=== PATIENT | female | born 2000 | race Caucasian/White ===

== ENCOUNTER 2021-12-21 15:31 | Observation (INO) ==
[2021-12-21] MEDS ORDERED: 0.9 % Sodium Chloride 1,000 ML IVC ONE (15:55)
[2021-12-21] MEDS ORDERED: *HR* FentaNYL (PF) 100 MCG/2 ML VIAL IVP ONE (16:08)
[2021-12-21] MEDS ORDERED: Ondansetron 4 MG/2 ML VIAL IVP ONE (16:08)
[2021-12-21] MEDS ORDERED: Iopamidol - 370 500 ML MLS IVP ONE (16:08)
[2021-12-21 16:32] LABS: Hematocrit 24.9 % (35.3-44.9); Hemoglobin 7.3 g/dL (11.5-15.4); Mean Corpuscular HGB Conc 29.3 g/dL (31.6-35.5); Mean Corpuscular Hemoglobin 22.8 pg (28.0-33.3); Mean Corpuscular Volume 77.8 fL (83.0-100.0); Mean Platelet Volume 10.9 fL (9.4-12.4); Platelet Count 362 K/mcL (140-400); Red Cell Distribution Width 15.3 % (11.5-14.5); Segmented Neutrophils % 76.5 %
[2021-12-21 16:33] LABS: Bacteria,Urine Few per hpf (None-Few); Basophils # 0.1 K/mcL (0.0-0.2); Basophils % 0.4 %; Bilirubin,Urine Negative (Negative); Blood,Urine Large (Negative); Clarity,Urine Clear (Clear); Color,Urine Colorless (Yellow); Eosinophils # 0.2 K/mcL (0.0-0.6); Eosinophils % 1.3 %; Glucose,Urine (UA) Normal (Normal); Immature Granulocytes % 0.8 % (0-4); Ketones,Urine Negative (Negative); Leukocyte Esterase,Urine Small (Negative); Lymphocytes # 2.4 K/mcL (0.6-4.6); Monocytes # 1.2 K/mcL (0.0-1.3); Mucus,Urine Few per lpf (None-Few); Nitrite,Urine Negative (Negative); Protein,Urine Trace mg/dL (Neg-Trace); RBC,Urine 15-30 per hpf (0-3); Squamous Epithelial Cell,Urine Moderate per hpf (None-Few); Urobilinogen,Urine Normal (Normal)
[2021-12-21 16:52] LABS: Alanine Aminotransferase 42 Units/L (7-52); Albumin 3.6 g/dL (3.5-5.7); Albumin/Globulin Ratio 1.1 (1.1-2.2); Alkaline Phosphatase 57 Units/L (34-104); Amylase 33 Units/L (29-103); Aspartate Amino Transferase 14 Units/L (13-39); BUN/Creatinine Ratio 17 (6-26); Bilirubin,Total 0.8 mg/dL (0.3-1.0); Blood Urea Nitrogen 10 mg/dL (6-20); Calcium 8.8 mg/dL (8.6-10.3); Carbon Dioxide 22 mEq/L (23-29); Chloride 103 mEq/L (98-107); Globulin 3.4 g/dL (2.4-3.5); Glucose 96 mg/dL (70-105); Lipase 12 Units/L (11-82); Osmolality,Calculated 279 (280-300); Potassium 3.3 mEq/L (3.5-5.1); Sodium 135 mEq/L (136-145)
[2021-12-21] MEDS ORDERED: *HR* Propofol 200 MG/20 ML VIAL IVP ONE ×2 (18:09→21:07)
[2021-12-21] MEDS ORDERED: Lidocaine HCL 4 ML Topical Solution (Laryng-O-Jet Kit Sterile Pak) TP ONE ×2 (18:10)
[2021-12-21] MEDS ORDERED: Lidocaine -MPF 2% 2 ML VIAL ONE (18:10)
[2021-12-21] MEDS ORDERED: *HR* Succinylcholine 200 MG/10 ML VIAL IVP ONE (18:10)
[2021-12-21] MEDS ORDERED: *HR* Rocuronium Bromide 50 MG/5 ML VIAL ONE (18:10)
[2021-12-21] MEDS ORDERED: *HR* HYDROmorphone PF 0.5 MG/0.5 ML SYRINGE IVP PRN (18:11)
[2021-12-21] MEDS ORDERED: Ondansetron 4 MG/2 ML VIAL IVP PRN ×2 (18:11→22:11)
[2021-12-21] MEDS ORDERED: *HR* Midazolam HCl 2 MG/2 ML VIAL ONE (18:13)
[2021-12-21] MEDS ORDERED: *HR* FentaNYL (PF) 100 MCG/2 ML VIAL ONE (18:13)
[2021-12-21] MEDS ORDERED: CeFAZolin Syr 2,000MG/20 ML 2,000 MG/20 ML SYRINGE IVPB ONE (18:15)
[2021-12-21] MEDS ORDERED: Bupivacaine/EPI 1:200k 0.25% 50 ML VIAL ONE (18:35)
[2021-12-21] MEDS ORDERED: Albumin Human 5% 12.5 GM/250 ML IV.SOLN ONE (19:31)
[2021-12-21] MEDS ORDERED: Sugammadex Sodium 200 MG/2 ML VIAL IV ONE (20:40)
[2021-12-21] MEDS ORDERED: Acetaminophen IV 1,000 MG/100 ML BAG IVPB ONE (20:41)
[2021-12-21] MEDS ORDERED: *HR* HYDROMORPHONE 2 MG/ML VIAL ONE ×2 (20:53→21:07)
[2021-12-21] MEDS ORDERED: Ketorolac 30 MG/ML VIAL ONE (20:54)
[2021-12-21] MEDS ORDERED: *HR* HYDROcodone/Acet 10/325 mg TABLET PO PRN (21:49)
[2021-12-21] MEDS ORDERED: *HR* HYDROcodone/Acet 5/325 mg TABLET PO PRN (21:49)
[2021-12-21] MEDS ORDERED: Azithromycin 250 MG TABLET PO ONE (21:49)
[2021-12-21] MEDS: Ringers Solution, Lactated 1,000 ML IVC SCH (22:28)
[2021-12-22] MEDS: MetroNIDAZOLE 500 MG/100 ML 500 MG/100 ML BAG IVPB SCH ×4 (01:06→18:12)
[2021-12-22] MEDS: Ibuprofen 400 MG TABLET PO PRN ×2 (01:06→14:06)
[2021-12-22] MEDS ORDERED: 0.9 % Sodium Chloride 500 ML ONE (01:38)
[2021-12-22] MEDS ORDERED: Acetaminophen 325 MG TABLET PO PRN (03:11)
[2021-12-22] MEDS: cefTRIAXone 2,000 MG in 0.9 % Sodium Chloride Mini Bag 100 ML IVPB SCH ×2 (06:03→17:27)
[2021-12-22 06:53] LABS: Basophils % 0.1 %; Hematocrit 27.8 % (35.3-44.9); Hemoglobin 8.4 g/dL (11.5-15.4); Immature Granulocytes % 0.8 % (0-4); Lymphocytes # 0.8 K/mcL (0.6-4.6); Lymphocytes % 5.5 %; Mean Corpuscular HGB Conc 30.2 g/dL (31.6-35.5); Mean Corpuscular Hemoglobin 24.3 pg (28.0-33.3); Mean Corpuscular Volume 80.3 fL (83.0-100.0); Mean Platelet Volume 10.6 fL (9.4-12.4); Monocytes # 0.4 K/mcL (0.0-1.3); Monocytes % 2.8 %; Neutrophils # 13.3 K/mcL (1.6-8.9); Platelet Count 313 K/mcL (140-400); Red Blood Count 3.46 M/mcL (3.82-4.97); Red Cell Distribution Width 15.8 % (11.5-14.5); Segmented Neutrophils % 90.8 %; White Blood Count 14.6 K/mcL (4.3-11.1)
[2021-12-22] MEDS: Ringers Solution, Lactated 1,000 ML IVC SCH (09:17)
[2021-12-22 14:30] LABS: Bilirubin,Urine Negative (Negative); Blood,Urine Moderate (Negative); Clarity,Urine Turbid (Clear); Color,Urine Light-Yellow (Yellow); Glucose,Urine (UA) Normal (Normal); Ketones,Urine Negative (Negative); Leukocyte Esterase,Urine Small (Negative); Mucus,Urine Few per lpf (None-Few); Nitrite,Urine Negative (Negative); PH,Urine 7.5 pH Units (5.0-8.0); Protein,Urine Negative (Neg-Trace); Squamous Epithelial Cell,Urine Few per hpf (None-Few); Urobilinogen,Urine Normal (Normal)
[2021-12-23] MEDS: MetroNIDAZOLE 500 MG/100 ML 500 MG/100 ML BAG IVPB SCH ×2 (00:45→05:41)
[2021-12-23] MEDS: Ringers Solution, Lactated 1,000 ML IVC SCH (03:35)
[2021-12-23 04:45] LABS: Basophils % 0.3 %; Eosinophils # 0.1 K/mcL (0.0-0.6); Hematocrit 25.3 % (35.3-44.9); Hemoglobin 7.7 g/dL (11.5-15.4); Immature Granulocytes % 0.6 % (0-4); Lymphocytes # 2.9 K/mcL (0.6-4.6); Lymphocytes % 25.2 %; Mean Corpuscular HGB Conc 30.4 g/dL (31.6-35.5); Mean Corpuscular Hemoglobin 24.2 pg (28.0-33.3); Mean Corpuscular Volume 79.6 fL (83.0-100.0); Monocytes % 8.3 %; Neutrophils # 7.5 K/mcL (1.6-8.9); Platelet Count 291 K/mcL (140-400); Red Blood Count 3.18 M/mcL (3.82-4.97); Red Cell Distribution Width 15.9 % (11.5-14.5); Segmented Neutrophils % 64.6 %; White Blood Count 11.5 K/mcL (4.3-11.1)
[2021-12-23 05:12] VITALS: TEMP 97.9; O2SAT 98
[2021-12-23] MEDS: cefTRIAXone 2,000 MG in 0.9 % Sodium Chloride Mini Bag 100 ML IVPB SCH (05:42)
[2021-12-23 07:31] VITALS: BP 99/61; PULSE 78
== END 2021-12-23 10:00 | disposition home or self-care (01) ==
LOC: EMEROOARM 15:31 → 1NENUPED 15:31
PROVIDERS: ADMIT Obstetrics & Gynecology; ATTEND Obstetrics & Gynecology